=== PATIENT | male | born 1990 | race Caucasian/White ===

== ENCOUNTER 2022-08-01 20:11 | Emergency (ER) | payer MEDICAID, SELFPAY ==
[2022-08-01 20:19] VITALS: BP 128/89; PULSE 78; RESP 16; TEMP 36.8; O2SAT 98; BMI 23.5
--- NOTE | 2022-08-01 20:23 | XR_ITS ---
PROCEDURE INFORMATION: Exam: XR Chest Exam date and time: 08/01/2022 8:22 PM Age: 32 years old Clinical indication: Patient HX: Productive cough, congestion TECHNIQUE: Imaging protocol: Radiologic exam of the chest. Views: 2 views. COMPARISON: No relevant prior studies available. FINDINGS: Lungs: Normal pulmonary expansion. Pulmonary vasculature grossly normal. No gross pulmonary infiltrates or edema pattern. Pleural spaces: No pleural effusion. No pneumothorax. Heart/Mediastinum: Heart size normal. No tracheal/mediastinal shift. Bones/joints: No acute osseous abnormalities are identified. IMPRESSION: No acute thoracic process.
--- NOTE | 2022-08-01 20:44 | HMH.EDURI ---
Discharge Plan Disposition Patient Disposition: Home, Self-Care Prescriptions Prescriptions: New prednisone [prednisone] 20 mg tablet 20 mg PO BID Qty: 10 0RF levofloxacin 500 mg tablet 500 mg PO DAILY Qty: 7 0RF No Action buprenorphine-naloxone [Suboxone] 8-2 mg Film 1 film BUCCAL DAILY Referrals Follow up/Referrals: Provider,Referral, [Primary Care Provider] - See instructions Clinical Impressions Clinical Impression: Bronchitis Stand Alone Forms Stand Alone Forms: Work/School Release Instructions Patient Instructions: DI for Acute Bronchitis Discharge ED Provider: Mo Holcomb URI/Sore Throat HPI General Chief Complaint: Upper Respiratory Infection Stated Complaint: sore throat, runny nose, congestion Time Seen by Provider: 08/01/22 20:44 Mode of Arrival: Ambulatory Source of Information: Patient and Medical Record Limitations: No Limitations Description of Symptoms (Recalled from ER Triage Doc. by RN): Pt c/o sore throat, runny nose, green phlegm with a productive cough for prior week. Denies fever. Did have an episode of vomiting two days ago but it was only once. History of Present Illness HPI Narrative: sore throat with cough - green and has uri sx Complaint: cough, sore throat and nasal congestion Onset (ago): day(s) Severity: moderate Description of mucous: green Able to tolerate fluids by mouth: Yes Associated symptoms: denies other symptoms Related Data Home Medications Medication Instructions Recorded Confirmed buprenorphine 8 mg-naloxone 2 mg 1 film buccal DAILY drug withdrawal 08/01/22 08/01/22 sublingual film (Suboxone) Previous Rx's Medication Instructions Recorded levofloxacin 500 mg tablet 500 mg PO DAILY #7 tabs 08/01/22 prednisone 20 mg tablet 20 mg PO BID #10 tabs 08/01/22 Allergies Allergy/AdvReac Type Severity Reaction Status Date / Time No Known Allergies Allergy Verified 08/01/22 20:22 [facility] Social History Smoking Status: Current every day smoker alcohol intake: never current occupational status: employed Travel in the last 8 weeks: None ROS Obtained: Yes All systems reviewed & no additional complaints except as documented Physical Exam General General appearance: alert Head Head exam: normocephalic Eye Eye exam: Present PERRL and EOMI ENT ENT exam: Present normal oropharynx, mucous membranes moist and TM's normal bilaterally Neck Neck exam: Present full ROM and trachea midline Respiratory Respiratory exam: Absent respiratory distress Cardiovascular Cardiovascular exam: Present regular rate Abdominal Exam Abdominal exam: Present soft Extremities Exam Extremities exam: Present full ROM Neurological Exam Neurological exam: Present alert, oriented X3 and CN II-XII intact Psychiatric Psychiatric exam: Present normal affect Skin Skin exam: Absent rash Medical Decision Making Medical Records Medical records reviewed: Yes I reviewed the patient's medical records. Miah Inquiry Pt receiving controlled substance: No Vital Signs: 08/01/22 20:19 Temperature 98.2 F Temperature Source Oral Pulse Rate [Apical] 78 Respiratory Rate 16 Blood Pressure [Right Arm] 128/89 Blood Pressure Mean [Right Arm] 102 Blood Pressure Source [Right Arm] Automatic Cuff Blood Pressure Position [Right Arm] Sitting 02 Sat by Pulse Oximetry 98 Oxygen Delivery Method Room Air Lab Data Lab results reviewed: Yes I reviewed the patient's lab results. Lab Results 08/01/22 20:16: SARS-CoV-2 (PCR) Not detected, Influenza A Untype (PCR) Not detected, Influenza Type B (PCR) Not detected 08/01/22 20:23: Group A Strep Rapid Negative Orders (Tests/Meds): ED MEDICATIONS Generic Name Dose Route Start Last Admin Trade Name Coleq PRN Reason Stop Dose Admin Levofloxacin 500 mg 08/01/22 21:48 Levofloxacin 500mg Tab PO 08/01/22 21:49 ONCE ONE Prednisone 40 mg 08/01/22 21:48 Prednisone 20mg Tab
[2022-08-01 20:56] LABS: Coronavirus 19, PCR Not Detected (NotDetected); Influenza A, PCR Not Detected (NotDetected); Influenza B, PCR Not Detected (NotDetected)
[2022-08-01 20:57] LABS: Strep Scrn Group A (Rapid) Negative (Negative)
[2022-08-01 21:58] VITALS: BP 125/85; PULSE 78; RESP 18; TEMP 36.6; O2SAT 98
== END 2022-08-01 22:01 | disposition home or self-care (01) ==
PROVIDERS: Emergency Provider Emergency Medicine
DX: J40 Bronchitis, not specified as acute or chronic (principal)
CPT/HCPCS: 71046; 87430; 99212; C9803; G0463; U0003; U0005

== ENCOUNTER → 2023-04-08 23:41 | Outpatient (CLI) | payer MEDICAID, SELFPAY ==
[2023-04-08 19:32] LABS: Free T4 (Free Thyroxine) 1.42 ng/dl (0.78-2.19)
[2023-04-08 19:39] LABS: Basophils # 0.1 K/mm3 (0-0.2); Basophils % 0.8 % (0.1-2.0); Eosinophils # 0.2 K/mm3 (0.0-0.4); Eosinophils % 2.7 % (0.1-12.0); Hematocrit 48.9 % (42.0-52.0); Hemoglobin 15.6 g/dL (14.1-18.0); Lymphocytes % 29.1 % (10-50); Mean Corpuscular HGB Conc 31.8 g/dL (31.8-35.4); Mean Corpuscular Hemoglobin 29.5 pg (27.0-31.2); Mean Corpuscular Volume 92.7 fl (80-94); Mean Platelet Volume 10.4 fl (7.4-10.4); Monocytes # 0.4 K/mm3 (0.1-1.0); Monocytes % 5.8 % (1.7-9.3); Neutrophils # 4.1 K/mm3 (1.8-7.8); Neutrophils % 61.7 % (37.0-80.0); Platelet Count 195 K/mm3 (142-424); Red Blood Count 5.28 M/mm3 (4.60-6.20); Red Cell Distribution Width 13.3 % (11.5-17.5); White Blood Count 6.7 K/mm3 (4.8-10.8)
[2023-04-08 19:42] LABS: Chloride 99 mmol/L (98-107); Sodium 143 mmol/L (136-145)
[2023-04-08 19:43] LABS: Potassium 4.3 mmoL/L (3.5-5.1)
[2023-04-08 19:45] LABS: Alanine Aminotransferase 41 U/L (12-78); Albumin Level 5.1 g/dl (3.5-5.0); Albumin/Globulin Ratio 1.7 (1.1-1.8); Alkaline Phosphatase 88 U/L (38-126); Anion Gap 18.3 mEq/L (5-15); Aspartate Amino Transferase 41 U/L (17-59); Bilirubin,Total 0.5 mg/dl (0.2-1.3); Blood Urea Nitrogen 18 mg/dl (9-20); Carbon Dioxide 30 mmol/L (22.0-30.0); Cholesterol 165 mg/dl (140-200); Estimated Glomerular Filt Rate 87 ml/min (>60); GFR (African American) 105 ML/MIN (>60); Total Protein,Serum 8.1 g/dl (6.3-8.2); Triglycerides 217 mg/dl (30-150); VLDL Cholesterol 43 mg/dL (0-40)
[2023-04-08 19:46] LABS: Calcium 9.7 mg/dl (8.4-10.2); Chol/HDL Ratio 3.7 (1-3.5); Glucose 94 mg/dl (74-100); HDL Cholesterol 45 mg/dl (40-60)
[2023-04-08 19:57] LABS: Direct LDL Cholesterol 42.05 mg/dL (100-129)
[2023-04-08 20:53] LABS: 25-OH Vitamin D, Total 35.6 ng/mL (30-100)
== END ==
PROVIDERS: PCP Emergency Medicine; Visit Provider Emergency Medicine
DX: R53.83 Other fatigue (principal); Z79.899 Other long term (current) drug therapy
CPT/HCPCS: 80053; 80061; 82306; 84439; 84443; 85025

== ENCOUNTER 2023-06-16 21:07 | Emergency (ER) | payer MEDICAID, SELFPAY ==
[2023-06-16 21:08] VITALS: BP 130/109; PULSE 160; RESP 21; TEMP 36.6; O2SAT 98; BMI 25.0
--- NOTE | 2023-06-16 21:23 | HMH.EDGENADL ---
Discharge Plan Disposition Patient Disposition: Home, Self-Care Condition: Good Prescriptions Prescriptions: No Action buprenorphine-naloxone [Suboxone] 8-2 mg Film 1 film BUCCAL DAILY trazodone 50 mg tablet 50 mg PO HS clonazepam [Klonopin] 0.5 mg tablet 0.5 mg PO QID escitalopram oxalate 20 mg tablet 20 mg PO DAILY Activity Restrictions/Add. Instructions Additional Instructions/Restrictions: Please follow-up with your primary care provider. Please return to the emergency department if you develop any new or worsening symptoms or become concerned for your health. Clinical Impressions Clinical Impression: Alcohol intoxication, Suicidal ideations Discharge ED Provider: Ghassan Navarro General Adult HPI <Ghassan Navarro MD - Last Filed: 06/16/23 23:14> General Chief complaint: Medical Clearance Stated complaint: Medical clearance Time Seen by Provider: 06/16/23 21:12 History of Present Illness HPI narrative: Patient is a 33-year-old male brought in by police for suicidal ideation and possible suicide attempt. The patient is belligerent and is not cooperative not answering questions. Apparently the police were called multiple times to his house today because has been fighting with his girlfriend. The second call was because of a possible suicide attempt. She states she saw him with a bottle of Klonopin but is unsure exactly how many he took. He refuses to answer questions about whether or not he did ingest anything and he tells me that it does not matter because he states Medicare myself in this hospital or in the group home no matter what you do. He was arrested for intoxication and other than alcohol we do not know to what extent if and what medications he took. Related Data Home Medications Medication Instructions Recorded Confirmed buprenorphine 8 mg-naloxone 2 mg 1 film buccal DAILY Chronic opioid 08/01/22 06/16/23 sublingual film (Suboxone) abuse clonazepam 0.5 mg tablet (Klonopin) 0.5 mg PO QID Anxiety 06/16/23 06/16/23 escitalopram oxalate 20 mg tablet 20 mg PO DAILY Mood 06/16/23 06/16/23 trazodone 50 mg tablet 50 mg PO HS Mood 06/16/23 06/16/23 Allergies Allergy/AdvReac Type Severity Reaction Status Date / Time No Known Allergies Allergy Verified 04/08/23 15:47 PFSH <Ghassan Navarro MD - Last Filed: 06/16/23 23:14> [facility] Disclaimer: The information contained in this section may have been updated after the patient was seen, as this information can be updated by other users. Social History Smoking Status: Current every day smoker alcohol intake: never current occupational status: employed Travel in the last 8 weeks: None <Ghassan Navarro MD - Last Filed: 06/16/23 23:14> ROS Obtained: Yes All systems reviewed & no additional complaints except as documented Physical Exam <Ghassan Navarro MD - Last Filed: 06/16/23 23:14> General General appearance: other (Patient is belligerent angry yelling cussing he is in cuffs at the moment) Respiratory Respiratory exam: Present normal lung sounds bilaterally Cardiovascular Cardiovascular exam: Present regular rate; Absent tachycardia Neurological Exam Neurological exam: Present alert and oriented X3 Medical Decision Making <Ghassan Navarro MD - Last Filed: 06/16/23 23:14> Miah Inquiry Pt receiving controlled substance: No Vital Signs: 06/16/23 21:08 06/16/23 22:10 06/16/23 22:10 Temperature 97.8 F 98.5 F Temperature Source Tympanic Oral Pulse Rate 124 H 120 H Pulse Rate [Left] 160 H Respiratory Rate 21 17 Blood Pressure 115/84 115/84 Blood Pressure [Right Arm] 130/109 H Blood Pressure Mean [Right Arm] 116 Blood Pressure Source Automatic Cuff Blood Pressure Source [Right Arm] Automatic Cuff Blood Pressure Position Sitting Blood Pressure Position [Right Arm] Sitting 02 Sat by Pulse Oximetry 98 96 97 Oxygen Delivery Method Room
[2023-06-16 21:35] LABS: Basophils # 0.1 K/mm3 (0-0.2); Basophils % 0.9 % (0.1-2.0); Chloride 105 mmol/L (98-107); Eosinophils # 0.2 K/mm3 (0.0-0.4); Eosinophils % 1.7 % (0.1-12.0); Hematocrit 52.2 % (42.0-52.0); Hemoglobin 17.5 g/dL (14.1-18.0); Lymphocytes # 5.2 K/mm3 (0.7-4.5); Lymphocytes % 49.7 % (10-50); Mean Corpuscular HGB Conc 33.4 g/dL (31.8-35.4); Mean Corpuscular Hemoglobin 30.4 pg (27.0-31.2); Mean Corpuscular Volume 91.1 fl (80-94); Mean Platelet Volume 9.2 fl (7.4-10.4); Monocytes # 0.5 K/mm3 (0.1-1.0); Monocytes % 4.8 % (1.7-9.3); Neutrophils # 4.5 K/mm3 (1.8-7.8); Neutrophils % 42.9 % (37.0-80.0); Platelet Count 260 K/mm3 (142-424); Potassium 3.4 mmoL/L (3.5-5.1); Red Blood Count 5.74 M/mm3 (4.60-6.20); Red Cell Distribution Width 13.6 % (11.5-17.5); Sodium 146 mmol/L (136-145); White Blood Count 10.5 K/mm3 (4.8-10.8)
[2023-06-16 21:37] LABS: Alanine Aminotransferase 36 U/L (12-78); Alkaline Phosphatase 86 U/L (38-126); Anion Gap 29.4 mEq/L (5-15); Aspartate Amino Transferase 39 U/L (17-59); Bilirubin,Total 0.5 mg/dl (0.2-1.3); Blood Urea Nitrogen 15 mg/dl (9-20); Carbon Dioxide 15 mmol/L (22.0-30.0); Creatinine Clearance Estimated 87 mL/min (50-200); Estimated Glomerular Filt Rate 70 ml/min (>60); GFR (African American) 84 ML/MIN (>60)
[2023-06-16 21:38] LABS: Albumin Level 5.5 g/dl (3.5-5.0); Albumin/Globulin Ratio 1.4 (1.1-1.8); Calcium 10.2 mg/dl (8.4-10.2); Creatine Kinase 77 U/L (55-170); Globulin 3.9 g/dL (1.3-3.2); Glucose 120 mg/dl (74-100); Total Protein,Serum 9.4 g/dl (6.3-8.2)
[2023-06-16 21:41] LABS: Acetaminophen < 10 ug/ml (10-30); Salicylate < 1.0 mg/dL (2.0-20.0)
[2023-06-16 21:46] LABS: Ethyl Alcohol 182 mg/dl (0-10)
--- NOTE | 2023-06-16 21:54 | PC.NURSE ---
Patient has calmed down. He is still hand cuffed behind his back, CMS inact to hands. Patient has officers at bedside, house decorator, and tech from 2nd floor to assess q15 min checks.
[2023-06-16 22:09] LABS: Thyroid Stimulating Hormone 0.95 uIU/mL (0.465-4.68)
[2023-06-16 22:10] VITALS: BP 115/84; PULSE 120; PULSE 124; RESP 17; TEMP 36.9; O2SAT 96; O2SAT 97
--- NOTE | 2023-06-16 22:11 | PC.NURSE ---
Patient agreeable to not fight or become belligerent again. Sitter at bedside per policy. Patient hand cuffed with left hand to bed rail. CMS intact
--- NOTE | 2023-06-16 23:00 | PC.NURSE ---
Patient is very apologetic for his behavior. Sitter still at bedside. Patient a/o x3. Police cited patient and have released him from their custody at this time. Attending notified
--- NOTE | 2023-06-16 23:19 | PC.NURSE ---
Patient attempting to leave to go outside and smoke. Explained to patient that he cannot leave the facility because he is here for intoxication and suicidal ideations. Attending notified. supervisor scenic arts at bedside speaking with patient
--- NOTE | 2023-06-16 23:24 | PC.NURSE ---
Attending, Dr. Navarro reports patient to be assessed at 3 hour ledy from initial draw of alcohol. At 0024 we will re-evaluate and if he is no longer suicidal then he can be discharged from a medical standpoint. Patient is still anxious and attempting to leave the ED so he can go outside and smoke. New attending, Dr. Frederick at bedside speaking with patient.
[2023-06-17 00:22] VITALS: BP 119/81; PULSE 111; RESP 18; TEMP 36.9; O2SAT 98
== END 2023-06-17 00:24 | disposition home or self-care (01) ==
PROVIDERS: Emergency Provider Student in an Organized Health Care Education/Training Program
DX: R45.851 Suicidal ideations (principal); F10.929 Alcohol use, unspecified with intoxication, unspecified; F17.200 Nicotine dependence, unspecified, uncomplicated
CPT/HCPCS: 80053; 80329; 82550; 84443; 85025; 96360; 99285

== ENCOUNTER → 2023-09-03 09:11 | Outpatient (CLI) | payer MEDICAID, SELFPAY ==
[2023-09-03 22:55] LABS: Amphetamine/Metha Screen,Urine Negative ng/ml (<1000)
[2023-09-03 22:56] LABS: Barbiturates Screen,Urine Negative ng/ml (<200); Benzodiazepines Screen,Urine Negative ng/ml (<200)
[2023-09-03 22:57] LABS: Cannabinoid Screen,Urine Negative ng/ml (<50)
[2023-09-03 22:58] LABS: Cocaine Screen,Urine Negative ng/ml (<300); Methadone Screen,Urine Negative ng/ml (<300)
[2023-09-03 22:59] LABS: Opiate Screen,Urine Negative ng/ml (<300); Phencyclidine Screen,Urine Negative ng/ml (<25)
== END ==
PROVIDERS: PCP Emergency Medicine; Visit Provider Emergency Medicine
DX: M51.16 Intervertebral disc disorders with radiculopathy, lumbar region (principal); Z79.899 Other long term (current) drug therapy
CPT/HCPCS: 80305

== ENCOUNTER 2024-02-18 11:36 | Outpatient (CLI) | payer MEDICAID, SELFPAY ==
[2024-02-18 19:08] LABS: Basophils # 0.1 K/mm3 (0-0.2); Eosinophils # 0.1 K/mm3 (0.0-0.4); Hematocrit 49.5 % (42.0-52.0); Hemoglobin 16.2 g/dL (14.1-18.0); Lymphocytes # 2.2 K/mm3 (0.7-4.5); Lymphocytes % 29.9 % (10-50); Mean Corpuscular HGB Conc 32.7 g/dL (31.8-35.4); Mean Corpuscular Volume 94.6 fl (80-94); Mean Platelet Volume 10.3 fl (7.4-10.4); Monocytes # 0.3 K/mm3 (0.1-1.0); Monocytes % 4.6 % (1.7-9.3); Neutrophils # 4.7 K/mm3 (1.8-7.8); Neutrophils % 63.5 % (37.0-80.0); Platelet Count 199 K/mm3 (142-424); Red Blood Count 5.23 M/mm3 (4.60-6.20); White Blood Count 7.4 K/mm3 (4.8-10.8)
[2024-02-18 21:26] LABS: Chloride 104 mmol/L (98-107); Sodium 142 mmol/L (136-145)
[2024-02-18 21:27] LABS: Potassium 4.1 mmoL/L (3.5-5.1)
[2024-02-18 21:29] LABS: Alanine Aminotransferase 24 U/L (12-78); Albumin Level 5.1 g/dl (3.5-5.0); Albumin/Globulin Ratio 1.8 (1.1-1.8); Alkaline Phosphatase 102 U/L (38-126); Anion Gap 18.1 mEq/L (5-15); Aspartate Amino Transferase 29 U/L (17-59); Bilirubin,Total 0.7 mg/dl (0.2-1.3); Blood Urea Nitrogen 21 mg/dl (9-20); Calcium 10.2 mg/dl (8.4-10.2); Carbon Dioxide 24 mmol/L (22.0-30.0); Estimated Glomerular Filt Rate 86 ml/min (>60); GFR (African American) 104 ML/MIN (>60); Globulin 2.9 g/dL (1.3-3.2); Glucose 99 mg/dl (74-100)
[2024-02-20 09:20] LABS: Hep A Ab, Total Positive (Negative); Hep B Core Ab, Total Negative (Negative); Hep B Surface Ab, Qual Reactive (.)
[2024-02-29 12:25] LABS: HIV Screen 4th Generation wRfx Non Reactive; Hepatitis B Surface Antigen Negative
[2024-02-29 12:26] LABS: Fibrosis Score 0.08; Fibrosis Stage F0-NO FIBROSIS; Hepatitis C Antibody Reactive; Necroinflammat Activity Score 0.07
[2024-02-29 12:27] LABS: Alpha 2-Macroglobulins, Qn 234; Apolipoprotein A-1 148; Bilirubin, Total 0.2; Haptoglobin 147
[2024-02-29 12:28] LABS: ALT (SGPT) P5P 23; GGT 15
== END 2024-02-18 23:59 | disposition home or self-care (01) ==
LOC: LAB.DROPOF 02-19 11:36
PROVIDERS: PCP Nurse Practitioner Family; Visit Provider Nurse Practitioner Family
DX: B18.2 Chronic viral hepatitis C (principal)
CPT/HCPCS: 80053; 81596; 85025; 86703; 86704; 86706; 86708; 87340; 87380; 87522; G0432

== ENCOUNTER 2024-06-12 15:07 | Emergency (ER) | payer MEDICAID, SELFPAY ==
[2024-06-12 15:20] VITALS: BP 127/83; PULSE 87; RESP 19; TEMP 37.8; O2SAT 100; BMI 22.7
--- NOTE | 2024-06-12 15:44 | EXP.UTC ---
Discharge Plan Disposition Patient Disposition: Home, Self-Care Condition: Good Prescriptions Prescriptions: New penicillin V potassium 500 mg tablet 500 mg PO BID Qty: 20 0RF No Action clonazepam 0.25 mg tablet,disintegrating 0.25 mg PO TID Qty: 90 0RF buprenorphine-naloxone [Suboxone] 8-2 mg film 2 film BUCCAL DAILY Referrals Follow up/Referrals: Pedro Wren DO [Primary Care Provider] - See instructions Activity Restrictions/Add. Instructions Additional Instructions/Restrictions: *Monitor Temp, Over the counter Motrin or Tylenol as directed/as needed Tylenol every 4 hours and Motrin every 6 hours (as long as your family doctor has told you that you can take it) for fever or pain. and straight to ER if unable to lower temp less than 101.0 after medication given *Warm salt water gargles may help to soothe the throat *Throat Lozenges? *Warm fluids like tea with honey may help to soothe the throat? *Sleep elevated *Humidifier/Vaporizer *If you did not take Penicillin shot or was unable to, start taking antibiotic immediately and make sure that you take it for the FULL length of time although you should start to feel better in 24-48 hours *change toothbrush and toothpaste 24-48 hours after starting to take antibiotics so you do not reinfect yourself Monitor Temp. Tylenol and/or Ibuprofen as needed. ER if fever is no less than 101 despite alternating Tylenol and Ibuprofen * Encourage fluids, water, Gatorade, powerade, pedialyte if /toddler/or child *Cold fluids, popsicles and ice cream may feel good on his throat Follow up IMMEDIATELY for new or worsening symptoms or no Noticeable improvement over the next 48-72 hours. 911 for difficulty breathing or swallowing Clinical Impressions Clinical Impression: Strep throat Instructions Patient Instructions: Strep Throat, DI for Strep Throat Print Language Print Language: Maldivian Discharge ED Provider: Julia Lawson [facility] [place] HPI General Stated complaint: REARDON,body aches,cough Time Seen by Provider: 06/12/24 15:44 History of Present Illness Provider Complaint: Patient states that yesterday he was feeling achy all over and this morning he woke up with his throat hurting and worse with swallowing States that as the day went on his throat was hurting worse so he came in to get checked Related Data Home Medications ?Medication ?Instructions ?Recorded ?Confirmed buprenorphine 8 mg-naloxone 2 mg 2 film buccal DAILY Chronic opioid 01/21/24 06/12/24 sublingual film (Suboxone) abuse Previous Rx's ?Medication ?Instructions ?Recorded clonazepam 0.25 mg disintegrating 0.25 mg PO TID #90 tabs 05/13/24 tablet penicillin V potassium 500 mg 500 mg PO BID #20 tabs 06/12/24 tablet Allergies Allergy/AdvReac Type Severity Reaction Status Date / Time No Known Allergies Allergy Verified 05/13/24 14:35 [facility] Disclaimer: The information contained in this section may have been updated after the patient was seen, as this information can be updated by other users. Medical History Polysubstance abuse IV drug abuse Surgical History History of ankle surgery Family History Other Diabetes Hypertension Social History Smoking Status: Current every day smoker alcohol intake: current substance use type: former substance user, heroin and amphetamines current occupational status: employed and unemployed Travel in the last 8 weeks: None ROS Obtained: Yes All systems reviewed & no additional complaints except as documented and Yes Systems reviewed as appropriate & no additional complaints except as documented Constitutional Constitutional: Reports system reviewed and no additional complaints, except as documented, Reports
[2024-06-12 15:46] LABS: UTC Strep Screen (Rapid) Positive (Negative)
[2024-06-12 16:04] VITALS: BP 127/83; PULSE 87; RESP 19; TEMP 37.8; O2SAT 100
== END 2024-06-12 16:05 | disposition home or self-care (01) ==
PROVIDERS: Emergency Provider Nurse Practitioner; PCP Internal Medicine
DX: J02.0 Streptococcal pharyngitis (principal); R51.9 Headache, unspecified; R07.0 Pain in throat
CPT/HCPCS: 87880; 99204; 99212; G0463

== ENCOUNTER 2025-06-10 17:51 | Emergency (ER) | payer MEDICAID, SELFPAY ==
[2025-06-10] VITALS (17 sets, daily range): BP systolic 115–165; BP diastolic 73–105; PULSE 50–75; RESP 16–20; TEMP 36.7–36.8; O2SAT 95–100; BMI 21.1
--- NOTE | 2025-06-10 17:52 | ECG_ITS ---
APPROVED REPORT Exam: Resting ECG HR:84 bpm ECG Measurements Heart Rate 84 AXES LA 155 P 64 QRSd 94 QRS 53 QT 376 T 53 QTc 417 Conclusion SINUS RHYTHM POSSIBLE LEFT ATRIAL ENLARGEMENT [-0.1mV P-WAVE IN V1/V2] BORDERLINE ECG UNCONFIRMED REPORT Normal sinus rhythm. No ST elevation or depression. QTc of 417 Electronically signed by : KARLA MATAMOROS, 06/10/2025 21:03:45
--- NOTE | 2025-06-10 17:59 | [facility].EDGENADL ---
Discharge Plan Disposition Patient Disposition: Home, Self-Care Prescriptions Prescriptions: New famotidine [Pepcid] 20 mg tablet 20 mg PO DAILY Qty: 30 0RF No Action clonazepam 0.5 mg tablet 0.25 mg PO BID 30 Days Qty: 30 0RF buprenorphine-naloxone [Suboxone] 8-2 mg film 2 film BUCCAL DAILY Referrals Follow up/Referrals: Provider,Referral, MD [Referring, Medical] - See instructions Activity Restrictions/Add. Instructions Additional Instructions/Restrictions: Follow-up with your primary care physician if symptoms do not improve. If you develop any new or worsening symptoms, or if you become concerned for your health for any reason, return to the emergency department for evaluation. You are being prescribed Pepcid to help with acid reflux. Take this as prescribed. Clinical Impressions Clinical Impression: Chest pain Print Language Print Language: Uzbek Discharge ED Provider: Gustabo Mendez Adult HPI General Chief complaint: Chest Pain Stated complaint: chest pain Time Seen by Provider: 06/10/25 17:59 History of Present Illness HPI narrative: Aki Gaviria is a 35-year-old male on Suboxone with no significant past medical history who presents to the emergency department for complaints of sudden onset chest pain that radiates to his back. Patient states that 2 hours ago, he was eating when he developed sudden onset left-sided chest pain that radiates to his back. He has not taken any medications for it. He rates his pain as a 7 out of 10. He states that he does not have any cardiac history. He denies any shortness of breath but does state that the chest pain is worsened with breathing. He denies any history of high blood pressure. He occasionally drinks alcohol, denies any recreational drug use, does smoke tobacco. He denies any abdominal pain, nausea, vomiting, diarrhea. 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 Medical History Polysubstance abuse IV drug abuse Surgical History History of ankle surgery Family History Other Diabetes Hypertension Social History Smoking Status: Current every day smoker tobacco type: cigarettes smoking status start date: half pack a day alcohol intake: current alcohol intake frequency: holidays/special occasions only substance use type: former substance user, heroin and amphetamines current occupational status: employed Travel in the last 8 weeks?: None Have you lived/traveled outside [place] in past 30 days?: No Contact w/someone who lives/traveled outside [place] past 30 days?: No Exposure to someone with infectious disease in past 14 days?: No Do you have a fever (greater than 100.4 F or 38 C)?: No Have you tested positive for COVID-19?: No Exposed to someone with COVID-19 in past 14 days?: No Do you have a sore throat?: No Do you have a cough?: No Do you have any weakness?: No Do you have any diarrhea?: No Are you experiencing any unusual bleeding?: No Do you have any muscle aches/pain?: No Do you have any abdominal pain?: No Are you experiencing loss of taste or smell?: No Other Medical History Have you received the Pneumonia Vaccine: No ROS Obtained: Yes Systems reviewed as appropriate & no additional complaints except as documented Physical Exam General General appearance: alert and in no apparent distress Head Head exam: atraumatic Eye Eye exam: Present normal appearance ENT ENT exam: Present normal external ear exam Neck Neck exam: Present full ROM Chest Chest inspection: Present symmetric chest wall rise Respiratory Respiratory exam: Present normal lung sounds bilaterally; Absent respiratory distress, wheezes or stridor Cardiovascular Cardiovascular exam: Present regular rate and normal rhythm Abdominal Exam Abdominal exam: Present soft; Absent tenderness or guarding exam: Present deferred Extremities Exam Extremities exam: Present normal inspection Back Exam Back exam: Present normal inspection Neurological Exam Neurological exam: Present alert and oriented X3 Psychiatric Psychiatric exam: Present normal affect Skin Skin exam: Present warm and dry Medical Decision Making Medical Records Screening: Per USPSTF and CDC recommendations, given the prevalence of disease in our region, it is our hospital?s policy to screen for HIV and viral Hepatitis for all patients aged 18 and over and those with ongoing risk factors. Miah Inquiry Pt receiving controlled substance: No Vital Signs: 06/10/25 17:55 06/10/25 18:05 06/10/25 19:51 Temperature 98.3 F Temperature Source Oral Pulse Rate 75 51 L Pulse Rate [Left Radial] 75 Respiratory Rate 20 Blood Pressure 121/73 Blood Pressure [Right Arm] 165/105 H Blood Pressure Mean [Right Arm] 125 02 Sat by Pulse Oximetry 100 99 Oxygen Delivery Method Room Air Lab Data Lab Results 06/10/25 18:00: WBC 9.5, RBC 4.74, Hgb 14.9, Hct 43.0, MCV 90.7, MCH 31.4 H, MCHC 34.7, RDW 13.2, Plt Count 208, MPV 11.9 H, Neut % (Auto) 62.7, Lymph % (Auto) 27.5, Hardy % (Auto) 6.2, Eos % (Auto) 2.5, Baso % (Auto) 0.9, Neut # (Auto) 6.0, Lymph # (Auto) 2.6, Hardy # (Auto) 0.6, Eos # (Auto) 0.2, Baso # (Auto) 0.1, Sodium 141, Potassium 4.4, Chloride 107, Carbon Dioxide 27, Anion Gap 11.4, BUN 19, Creatinine 1.00, Estimated Creat Clear 89, Estimated GFR 85, Est GFR ( Amer) 103, Glucose 84, Calcium 9.5, Total Bilirubin 0.5, AST 35, ALT 20, Alkaline Phosphatase 69, Troponin I < 0.01, C-Reactive Protein 1.1, NT-Pro-B Natriuret Pep < 20.0, Total Protein 8.0, Albumin 4.9, Globulin 3.1, Albumin/Globulin Ratio 1.6 06/10/25 21:00: Troponin I < 0.01 06/10/25 18:00 06/10/25 18:00 Orders (Tests/Meds): ED MEDICATIONS Discontinued Medications Generic Name Dose Route Start Last Admin Trade Name Freq PRN Reason Stop Dose Admin Aspirin 325 mg 06/10/25 18:16 06/10/25 18:26 Aspirin 325mg Tablet PO 06/10/25 18:17 325 mg ONCE ONE Administration Belladonna Alkaloids 60 ml 06/10/25 18:16 06/10/25 18:26 Belladonna Alkaloids 60 Ml Ml PO 06/10/25 18:17 60 ml ONCE ONE Administration Iopamidol 80 ml 06/10/25 18:51 06/10/25 18:52 Iopamidol-370 (76%);100ml Bottle IV 06/10/25 18:52 80 ml ONCE ONE Administration Sodium Chloride 10 ml 06/10/25 18:51 06/10/25 18:52 Sodium Chloride 0.9% 10ml Syr (Rad Only) IV 06/10/25 18:52 10 ml ONCE ONE Administration Sodium Chloride 50 ml 06/10/25 18:51 06/10/25 18:52 0.9 % Sodium Chloride 50 Ml Vial IV 06/10/25 18:52 50 ml ONCE ONE Administration ORDERS Category Date Time Status CTA Chest [CT angio chest - dissection] Stat Cat Scan 06/10/25 18:16 Completed POCUS Point of Care (ER Only) Stat Exams 06/10/25 18:05 Completed BNP [NT Pro Brain Natriuretic Pep.] Stat Lab 06/10/25 18:00 Completed CBC w/Auto Diff [Complete Blood Count Auto Diff] Stat Lab 06/10/25 18:00 Completed CMP [Comprehensive Metabolic Panel] Stat Lab 06/10/25 18:00 Completed CRP [C-Reactive Protein] Stat Lab 06/10/25 18:00 Completed Troponin I Q3H Lab 06/10/25 21:00 Completed Troponin I Q3H Lab 06/11/25 00:30 Ordered Troponin I Stat Lab 06/10/25 18:00 Completed ECG Data Tracing #1: I reviewed this ECG and interpreted as documented below: Normal sinus rhythm. No ST elevation or depression. QTc normal at 417. HEART Score History (anamnesis): Slightly suspicious ECG: Normal Age: <45 years Risk factors: 1-2 risk factors Troponin: </= normal limit HEART Score: 1 Medical Decision Narrative: Aki Gaviria is a 35-year-old male on Suboxone with no significant past medical history who presents to the emergency department for complaints of sudden onset chest pain that radiates to his back. Patient states that 2 hours ago, he was eating when he developed sudden onset left-sided chest pain that radiates to his back. He has not taken any medications for it. He rates his pain as a 7 out of 10. He states that he does not have any cardiac history. He denies any shortness of breath but does state that the chest pain is worsened with breathing. He denies any history of high blood pressure. He occasionally drinks alcohol, denies any recreational drug use, does smoke tobacco. He denies any abdominal pain, nausea, vomiting, diarrhea. On arrival, patient is hypertensive with blood pressure 165/105, heart rate within normal limits, breathing comfortably on room air, afebrile, oxygen saturation 100% SpO2 on room air. Physical exam, stated above, revealed overall well-appearing male in no respiratory distress. Cardiopulmonary exam without murmur, rub. Abdomen soft, nontender nondistended. No evidence of peripheral edema. Differential diagnosis include but is not limited to: ACS, pericarditis, aortic dissection, pulmonary embolism, acid reflux, pleurisy, costochondritis, food bolus, pneumonia, among others. The most morbid conditions were considered and workup was based on these. Workup in the emergency department included: EKG, troponin, BNP, CBC with differential, CMP, CRP, CTA chest dissection protocol. Patient was given 325 mg of aspirin and a GI cocktail After studies show no leukocytosis, no anemia, platelets within normal limits, CMP unremarkable nonactionable. Initial troponin less than 0.01. BNP less than 20. CTA of the chest was interpreted by me personally. No aortic aneurysm or dissection, no pulmonary embolism. No pneumonia. See final radiology report for details. The patient was placed in observation status at 1930. Medical necessity for observational status is serial troponins. The patient was provided serial reevaluations and cardiac monitoring while awaiting results. Results of testing during observation are remarkable for: Negative repeat troponin. Because of these results, I feel patient can be discharged with follow-up with his PCP. Patient's heart score is 1. Total time in observation was 2 hours and 6 minutes. Will send patient with prescription for Pepcid for possible acid reflux. Patient is followed by Dr. Grider and said that he will try to arrange a follow-up appointment for tomorrow or early next week. Return precautions were given. All questions were answered. He demonstrated understanding and was in agreement this plan. Critical Care Critical Care Time Critical Care Time: No
--- NOTE | 2025-06-10 18:16 | CT_ITS ---
PROCEDURE INFORMATION: Exam: CTA Chest With Contrast Exam date and time: 06/10/2025 6:52 PM Age: 35 years old Clinical indication: Pain; Chest pressure; Additional info: Chest pain radiating to the back TECHNIQUE: Imaging protocol: Computed tomographic angiography of the chest with contrast. Exam focused on the arteries. 3D rendering (Not supervised by radiologist): MIP and/or 3D reconstructed images were created by the technologist. Radiation optimization: All CT scans at this facility use at least one of these dose optimization techniques: automated exposure control; mA and/or kV adjustment per patient size (includes targeted exams where dose is matched to clinical indication); or iterative reconstruction. Contrast material: ISOVUE; Contrast volume: 80 ml; Contrast route: INTRAVENOUS (IV); COMPARISON: CR XR CHEST 2V 08/01/2022 8:22 PM FINDINGS: Pulmonary arteries: Normal. No pulmonary emboli. Aorta: Unremarkable. No aortic aneurysm. No aortic dissection. Lungs: Unremarkable. No consolidation. No masses. Pleural spaces: Unremarkable. No pneumothorax. No pleural effusion. Heart: No coronary calcification is noted. No cardiomegaly. No pericardial effusion. Lymph nodes: Unremarkable. No enlarged lymph nodes. Bones/joints: Unremarkable. No acute fracture. Soft tissues: Unremarkable. IMPRESSION: No evidence of pulmonary embolus.
[2025-06-10 18:25] LABS: Hematocrit 43.0 % (42.0-52.0); Hemoglobin 14.9 g/dL (14.1-18.0); Immature Granulocytes % 0.2 %; Mean Corpuscular HGB Conc 34.7 g/dL (31.8-35.4); Mean Corpuscular Hemoglobin 31.4 pg (27.0-31.2); Mean Corpuscular Volume 90.7 fl (80-94); Nucleated Red Blood Cells % 0 %; Platelet Count 208 K/mm3 (142-424); Red Blood Count 4.74 M/mm3 (4.60-6.20); Red Cell Distribution Width-SD 44.7 fL; White Blood Count 9.5 K/mm3 (4.8-10.8)
[2025-06-10] MEDS: BELLADONNA ALKALOIDS 60 ML ML PO (18:26)
[2025-06-10] MEDS: ASPIRIN 325MG TABLET 325 MG PO (18:26)
[2025-06-10 18:28] LABS: Albumin Level 4.9 g/dl (3.5-5.0); Chloride 107 mmol/L (98-107); Potassium 4.4 mmoL/L (3.5-5.1); Sodium 141 mmol/L (136-145)
[2025-06-10 18:31] LABS: Alanine Aminotransferase 20 U/L (12-78); Albumin/Globulin Ratio 1.6 (1.1-1.8); Alkaline Phosphatase 69 U/L (38-126); Anion Gap 11.4 mEq/L (5-15); Aspartate Amino Transferase 35 U/L (17-59); Bilirubin,Total 0.5 mg/dl (0.2-1.3); Blood Urea Nitrogen 19 mg/dl (9-20); Carbon Dioxide 27 mmol/L (22.0-30.0); Creatinine Clearance Estimated 89 mL/min (50-200); Creatinine,Serum 1.00 mg/dl (0.66-1.25); Estimated Glomerular Filt Rate 85 ml/min (>60); GFR (African American) 103 ML/MIN (>60); Globulin 3.1 g/dL (1.3-3.2); Total Protein,Serum 8.0 g/dl (6.3-8.2)
[2025-06-10 18:32] LABS: Calcium 9.5 mg/dl (8.4-10.2); Glucose 84 mg/dl (74-100)
[2025-06-10 18:37] LABS: C-Reactive Protein 1.1 mg/L (0-4)
[2025-06-10 18:49] LABS: NT Pro Brain Natriuretic Pep. < 20.0 pg/mL (0-125)
[2025-06-10 18:52] LABS: Troponin I < 0.01 ng/ml (0.00-0.034)
[2025-06-10] MEDS: IOPAMIDOL-370 (76%);100ML BOTTLE 80 ML IV (18:52)
[2025-06-10] MEDS: 0.9 % SODIUM CHLORIDE 50 ML VIAL IV (18:52)
[2025-06-10] MEDS: SODIUM CHLORIDE 0.9% 10ML SYR (RAD ONLY) 10 ML IV (18:52)
[2025-06-10 21:30] LABS: Troponin I < 0.01 ng/ml (0.00-0.034)
== END 2025-06-10 21:47 | disposition home or self-care (01) ==
PROVIDERS: Emergency Provider Student in an Organized Health Care Education/Training Program; PCP Internal Medicine
DX: R07.9 Chest pain, unspecified (principal); F41.1 Generalized anxiety disorder; F10.90 Alcohol use, unspecified, uncomplicated; F32.A Depression, unspecified
CPT/HCPCS: 71275; 80053; 83880; 84484; 85025; 86140; 93005; 99285; Q9967